=== PATIENT | male | born 1970 | race Caucasian/White ===

== ENCOUNTER 2018-09-02 08:48 | Emergency (ER) | END 2018-09-02 11:23 | disposition home or self-care (01) ==

== ENCOUNTER 2018-10-20 23:11 | Inpatient (IN) | payer OTHER ==
[~2018-10-20] VITALS: Ht 177.8 cm; Wt 126.0 kg
[~2018-10-20 23:11] MED LIST: AMLO-147 PO; ASPI-817 PO; ERGO2000 PO; FENO145T37 PO; FURO40TA4 PO; LISI-471 PO; METO-336 PO; PANT40TA4 PO
[2018-10-20] MEDS ORDERED: SOD CHLORIDE 0.9% 1,000 ML IV STA (23:24)
[2018-10-20] MEDS ORDERED: DILTIAZEM 25 MG INJ IV ONE (23:30)
[2018-10-21] MEDS ORDERED: DILTIAZEM-D5W 125MG/125ML DRIP 125 ML IV SCH (00:30)
[2018-10-21] MEDS ORDERED: ONDANSETRON 4 MG INJ IV STA (00:37)
[2018-10-21] MEDS ORDERED: morphine 4 MG/ML VIAL IV STA (00:37)
--- NOTE | 2018-10-21 01:34 | ERD ---
ER Documentation Chief Complaint Chief Complaint SQUEEZING CP WITH IRREGULR RHTHYM, HX OF CABG HPI This is a very pleasant 39-year-old male, no swelling chest pain irregular rhythm. Patient has history of coronary artery bypass graft. History of A. fib as well. Said he felt palpitations as well. No nausea no vomiting or chills. No other current complaints. Pain is mild to moderate in intensity with no exacerbating alleviating factors ROS All systems reviewed and are negative except as per history of present illness. Medications Home Meds Reported Medications Lisinopril* (Lisinopril*) 20 Mg Tablet, 20 MG PO DAILY, #30 TAB 09/02/18 Pantoprazole* (Pantoprazole*) 40 Mg Tablet.dr, 40 MG PO AC BREAKFAST, TAB 09/02/18 Aspirin* (Aspirin* EC) 81 Mg Tablet.dr, 81 MG PO DAILY, TAB 09/02/18 Fenofibrate Nanocrystallized* (Fenofibrate*) 145 Mg Tablet, 145 MG PO DAILY, TAB 09/02/18 Metoprolol Succinate* (Toprol XL*) 100 Mg Tab.sr.24h, 100 MG PO DAILY, #30 TAB 09/02/18 Amlodipine Besylate* (Amlodipine Besylate*) 10 Mg Tablet, 10 MG PO DAILY, #30 TAB 18 Furosemide* (Furosemide*) 40 Mg Tablet, 40 MG PO DAILY, TAB 09/02/18 Ergocalciferol (Vitamin D2) (VITAMIN D2) 2,000 Unit Tablet, 2000 UNIT PO DAILY, TAB 09/02/18 Allergies Allergies: Coded Allergies: No Known Allergy (Unverified , 09/02/18) PMhx/Soc History of Surgery: Yes (PERCUTANEOUS INTERVENTIONS, MULTIPLE) Anesthesia Reaction: No Hx Neurological Disorder: No Hx Respiratory Disorders: No Hx Cardiac Disorders: Yes (HTN, HI CHOL, CAD) Hx Psychiatric Problems: No Hx Miscellaneous Medical Probl: Yes (ANGINA, CAD, HTN, DYSLIPIDEMIA, DM) Hx Alcohol Use: No Hx Substance Use: Yes (OCCASIONAL) Hx Tobacco Use: Yes Smoking Status: Former smoker Physical Exam Vitals Vital Signs Date Temp Pulse Resp B/P (MAP) Pulse Ox O2 O2 Flow FiO2 Time Delivery Rate 10/21/18 126 15 126/70 97 Room Air 01:16 (88) 10/20/18 98.4 92 20 148/95 98 23:14 (112) Physical Exam Const: No acute distress Head: Atraumatic Eyes: Normal Conjunctiva ENT: Normal External Ears, Nose and Mouth. Neck: Full range of motion. No meningismus. Resp: Clear to auscultation bilaterally Cardio: Regular rate and rhythm, no murmurs Abd: Soft, non tender, non distended. Normal bowel sounds Skin: No petechiae or rashes Back: No midline or flank tenderness Ext: No cyanosis, or edema Neur: Awake and alert Psych: Normal Mood and Affect Result Diagram: 10/20/18233410/20/182334 Results 24 hrs Laboratory Tests Test 10/20/18 23:35 White Blood Count 7.4 10^3/ul Red Blood Count 5.24 10^6/ul Hemoglobin 15.9 g/dl Hematocrit 43.1 % Mean Corpuscular Volume 82.3 fl Mean Corpuscular Hemoglobin 30.3 pg Mean Corpuscular Hemoglobin Concent 36.9 g/dl Red Cell Distribution Width 13.2 % Platelet Count 209 10^3/UL Mean Platelet Volume 9.7 fl Immature Granulocytes % 0.700 % Neutrophils % 49.5 % Lymphocytes % 41.1 % Monocytes % 7.0 % Eosinophils % 1.2 % Basophils % 0.5 % Nucleated Red Blood Cells % 0.0 /100WBC Immature Granulocytes # 0.050 10^3/ul Neutrophils # 3.7 10^3/ul Lymphocytes # 3.0 10^3/ul Monocytes # 0.5 10^3/ul Eosinophils # 0.1 10^3/ul Basophils # 0.0 10^3/ul Nucleated Red Blood Cells # 0.0 10^3/ul Prothrombin Time 12.6 Sec Prothrombin Time Ratio 1.0 INR International Normalized Ratio 0.93 Activated Partial Thromboplast Time 28.3 Sec Sodium Level 135 mmol/L Potassium Level 3.7 mmol/L Chloride Level 95 mmol/L Carbon Dioxide Level 29 mmol/L Anion Gap 11 Blood Urea Nitrogen 15 mg/dl Creatinine 0.89 mg/dl Est Glomerular Filtrat Rate mL/min > 60 mL/min Glucose Level 229 mg/dl Calcium Level 9.8 mg/dl Total Bilirubin 0.5 mg/dl Direct Bilirubin 0.00 mg/dl Indirect Bilirubin 0.5 mg/dl Aspartate Amino Transf (AST/SGOT) 27 IU/L Alanine Aminotransferase (ALT/SGPT) 28 IU/L Alkaline Phosphatase 110 IU/L Troponin I < 0.012 ng/ml B-Type Natriuretic Peptide 42 PG/ML Total Protein 8.4 g/dl Albumin 4.7 g/dl Globulin 3.70 g/dl Albumin/Globulin Ratio 1.27 Lipase 127 U/L Current Medications Medications Dose Sig/Alex Start Time Status Last (Trade) Ordered Route PRN Stop Time Admin Dose Reason Admin Sodium 1,000 ml @ Q1H STAT 10/20/18 DC 10/20/18 Chloride 1,000 mls/hr IV 23:24 23:47 10/21/18 00:23 Diltiazem 20 mg ONCE ONCE 10/20/18 DC 10/20/18 HCl IV 23:30 23:47 (Cardizem Iv) 10/20/18 23:32 Diltiazem 125 ml @ 5 TITRATE IV 10/21/18 10/21/18 HCl mls/hr 00:30 01:07 Morphine 4 mg ONCE STAT 10/21/18 DC 10/21/18 Sulfate IV 00:37 01:00 (morphine) 10/21/18 00:38 Ondansetron 4 mg ONCE STAT 10/21/18 DC 10/21/18 HCl (Zofran IV 00:37 01:00 Inj) 10/21/18 00:38 Procedures/MDM Chest X-ray 1V Interpreted by me: Soft Tissue: No acute abnormalities Bones: No acute abnormalities Mediastinum/Cardiac Silhouette/Lungs: [No acute abnormalities] EKG: Rate/Rhythm: Irregularly irregular rhythm 140beats per minute QRS, ST, T-waves: [No changes consistent w/ acute ischemia] Impression: A. fib with RVR Medical decision making: Patient's symptoms are concerning for cardiac cause will require inpatient workup and continuous monitoring. Further w/u for ischemia, arrhythmia, PE or dissection will be deferred to the inpatient team. Patient started on Cardizem drip to maintain heart rate control Accepting Care Team: Current data and ongoing care discussed. Time: 1 AM Primary Provider: Dr. Parmar Consulting: Deferred to inpatient team Outstanding Data: none Critical Care: Time: 35 minutes, independent of any separately billable procedural time Treatments/Evaluations: Close monitoring and treatment of unstable vital signs, cardiorespiratory, and neurologic status, while maintaining tight balance of fluid, respiratory, and cardiac interventions. Departure Diagnosis: Primary Impression: Chest pain Chest pain type: unspecified Qualified Codes: R07.9 - Chest pain, unspecified Condition: Serious STORM MITCHELL Oct 21, 2018 01:34
[2018-10-21 02:46] VITALS: PULSE 112
[2018-10-21 02:57] VITALS: BP 140/83; PULSE 121; RESP 20
[2018-10-21 03:11] VITALS: Ht 177.8 cm; Wt 126.0 kg
--- NOTE | 2018-10-21 03:59 | NUR ---
Pt. was admitted from the ER at 0245 for palpitations, a little chest pain. Dx Afib w/RVR. Troponin was negative at<0.012. Cardizem drip was started at the ER. Pt. received at 15 mg/hr Cardizem drip, S.Tach, HR = 121, no pain, steady on his feet, rest of the V/S normal.
[2018-10-21 04:00] VITALS: PULSE 79
[2018-10-21 04:55] VITALS: BP 142/80; PULSE 120; RESP 20
[2018-10-21] MEDS ORDERED: METOPROLOL (XL) 100 MG TAB PO SCH (05:08)
[2018-10-21] MEDS ORDERED: GLUCOSE GEL 15 GRAM TUBE PO PRN ×2 (05:30)
[2018-10-21] MEDS ORDERED: ACETAMINOPHEN 325 MG TAB PO PRN (05:30)
[2018-10-21] MEDS ORDERED: GLUCOSE GEL 15 GRAM TUBE BUCCAL PRN (05:30)
[2018-10-21] MEDS ORDERED: morphine 4 MG/ML VIAL IV PRN (05:30)
[2018-10-21] MEDS ORDERED: DEXTROSE 50% 50 ML SYRINGE IV PRN ×2 (05:30)
[2018-10-21] MEDS ORDERED: GLUCAGON 1 MG INJ IM PRN (05:30)
[2018-10-21] MEDS ORDERED: PANTOPRAZOLE (EC) 40 MG TAB PO SCH (07:00)
--- NOTE | 2018-10-21 07:13 | NUR ---
Pt. was in Sinus tach when received from the ICU, 121 rate, at 15 mg/hr Cardizem drip, then HR went SR 81, reduced drip to 10 mg/hr,then 5 mg/hr. Pt.s v/s were stable, pt. was comfortable,Metoprolol XL po was started. Endorsed to day RN weaning off of Cardizem drip.
[2018-10-21 07:38] VITALS: BP 132/76; PULSE 74; RESP 20
[2018-10-21] MEDS ORDERED: INSULIN ASPART [NOVOLOG] 3 ML PEN SC SCH (08:00)
[2018-10-21 08:52] VITALS: PULSE 79
[2018-10-21] MEDS ORDERED: FUROSEMIDE 20 MG INJ IV SCH (09:00)
[2018-10-21] MEDS ORDERED: CHOLECALCIFEROL 2,000 UNIT CAP PO SCH (09:00)
[2018-10-21] MEDS ORDERED: FENOFIBRATE 145 MG TAB PO SCH (09:00)
[2018-10-21] MEDS ORDERED: ASPIRIN (EC) 81 MG TAB PO SCH (09:00)
[2018-10-21] MEDS ORDERED: AMLODIPINE 10 MG TAB PO SCH (09:00)
[2018-10-21] MEDS ORDERED: LISINOPRIL 20 MG TAB PO SCH (09:00)
[2018-10-21] MEDS ORDERED: APIX5TAB PO (10:01)
[2018-10-21] MEDS ORDERED: METO-336 PO (10:01)
--- NOTE | 2018-10-21 10:02 | PDOCDIS ---
Discharge Instructions CONDITION [id number] Patient Condition: [id number] Good HOME CARE INSTRUCTIONS: [id number] Diet Instructions: [id number] Activity Restrictions: Aedow4m No Restrictions FOLLOW UP/APPOINTMENTS Follow-up Plan pcp [address] Morrissey 1 week THONG LANIER MD Oct 21, 2018 10:02
--- NOTE | 2018-10-21 11:13 | NUR ---
Discharge patient to home, self care. Patient remain stable. SR on the monitor. VS within normal limits. Administered scheduled meds. No complaints of pain. Discussed discharge instructions, home medications, diet, safety and follow up with primary care provider. DC on tele monitor and DC IV. Patient accompanied by significant others.
--- NOTE | 2018-10-21 12:18 | HP ---
DATE OF ADMISSION: 10/21/2018 CHIEF COMPLAINT: Palpitations. HISTORY OF PRESENT ILLNESS: A 47-year-old male with a history of coronary artery disease, hypertensi on, type 2 diabetes mellitus, hyperlipidemia and atrial fibrillation, status post coronary artery byp ass graft about 6 years prior to admission, presented to the emergency room with a complaint of on an d off palpitations. The patient denies any shortness of breath. No nausea, vomiting or diaphoresis. No exertional symptoms. Palpitations were noted approximately 45 minutes prior to visit to the [facility]. The patient was diagnosed with rapid atrial fibrillation and started on IV Cardizem. F ollowing admission, he converted to a normal sinus rhythm. Initial troponin was less than 0.012 and repeat troponin was 0.028. At the time of my visit, the patient was completely asymptomatic. PAST MEDICAL HISTORY: 1. Coronary artery disease. 2. Hypertension. 3. Paroxysmal atrial fibrillation. 4. Type 2 diabetes mellitus. 5. Hyperlipidemia. PAST SURGICAL HISTORY: Status post coronary artery bypass graft about 6 years prior to admission. MEDICATIONS PRIOR TO ADMISSION: 1. Norvasc 10 mg daily. 2. Aspirin 81 mg daily. 3. Fenofibrate 145 mg daily. 4. Lisinopril 20 mg daily. 5. Lasix 20 mg daily. 6. NovoLog insulin. 7. Protonix 40 mg daily. 8. Toprol-XL 100 mg daily. SOCIAL HISTORY: The patient lives at home. He denies tobacco or alcohol use. PHYSICAL EXAMINATION: GENERAL: Well-developed, well-nourished, pleasant gentleman who is in no apparent distress. VITAL SIGNS: Stable. Heart rate is 79. HEENT: Extraocular muscles are intact. Pupils are equal, reactive to light bilaterally. Sclerae ar e anicteric. Oropharynx is clear and moist. NECK: Supple. No JVD, no carotid bruits. LUNGS: Clear to auscultation bilaterally. CARDIAC: Regular rate and rhythm. No murmurs, rubs or gallops. ABDOMEN: Soft, nontender, nondistended. Normoactive bowel sounds. EXTREMITIES: No clubbing, cyanosis or edema. NEUROLOGICAL: Grossly nonfocal. ASSESSMENT: 1. A 47-year-old male with rapid atrial fibrillation, converted to normal sinus rhythm. 2. Paroxysmal atrial fibrillation. 3. Coronary artery disease. 4. Status post CABG about 6 years prior to admission. 5. Hypertension. 6. Type 2 diabetes mellitus. 7. Hyperlipidemia. PLAN: Placed in a tele observation. Resume home medications. Start Eliquis 5 mg b.i.d. Case was d iscussed with Dr. Palm. He agreed with the discharge planning on increasing doses of Toprol-XL and starting Eliquis. Dictated By: THONG GONZALEZ/NTS Conf#: [id number] DID#: [id number] CC: KEL PALM MD; RADHA COTTON MD;*EndCC*
--- NOTE | 2018-10-21 16:40 | RADRPT ---
Echocardiogram Report Patient Name: JAK LONGORIA Gender: Male Date: 1970 Study Date: 21-Oct-2018 Instructional Assistant: Ethan Mcginnis [facility] Location: [address] Ref. Physician: RADHA COTTON Quality: Adequate Procedures: Transthoracic echocardiogram with complete 2D, M-Mode, and doppler examination. Indications: Atrial Fibrillation. Palpitations. 2D/M Mode Doppler Measurement Value Normal Ranges Measurement Value Normal Ranges LVIDd 2D 3.6 3.5 - 5.6 cm AV Peak Rudolph 1.9 m/sec LVIDs 2D 2.8 2.1 - 4.1 cm AV Peak PG 15.0 mmHg LVPWd 2D 1.7 0.6 - 1.1 cm LVOT Peak Rudolph 1.3 m/sec IVSd 2D 1.7 0.6 - 1.1 cm LVOT Peak PG 7.0 mmHg AoR Diam 2D 3.4 2.0 - 3.7 cm MV E Peak Rudolph 1.0 m/sec LA/Ao 2D 1 0 - 1 MV A Peak Rudolph 0.7 m/sec LA Dimen 2D 3.5 2.3 - 4.0 cm MV E/A 1.4 MV Decel Time 229 msec Lat E` Rudolph 0.1 m/sec Lateral E/E` 9.3 MV E/A 1.4 Findings Left Ventricle: Normal left ventricular systolic function. Normal left ventricular cavity size. Severe concentric left ventricular hypertrophy. Ejection fraction is visually estimated at 60 %. Tissue Doppler/Mitral Doppler indices are consistent with impaired relaxation (Stage I diastolic dysfunction). Right Ventricle: Normal right ventricular size. Normal right ventricular systolic function. Left Atrium: The left atrium is normal in size. Right Atrium: The right atrium is normal in size. Mitral Valve: Normal appearance and function of the mitral valve with trace physiologic regurgitation. Aortic Valve: Normal appearance of the aortic valve. No significant aortic stenosis or insufficiency. Tricuspid Valve: Normal appearance of the tricuspid valve. Unable to obtain RVSP due to minimal presence of tricuspid regurgitation. Pulmonic Valve: Pulmonic valve not well visualized. Pericardium: Normal pericardium with no significant pericardial effusion. Aorta: Normal aortic root. IVC: Normal size and normal respiratory collapse consistent with normal right atrial pressure. Conclusions Severe concentric left ventricular hypertrophy with normal systolic function. Grade 1 diastolic dysfunction. No significant valvular abnormalities seen. Electronically Signed By: Lakesha Whitaker 21-Oct-2018 16:40:21 -0800 Patient Name: JAK LONGORIA Study Date: 21-Oct-[id number]
--- NOTE | 2018-10-21 16:54 | DS ---
DATE OF ADMISSION: 10/21/2018 DATE OF DISCHARGE: 10/21/2018 DISCHARGE DIAGNOSES: 1. Rapid atrial fibrillation, converted to normal sinus rhythm. 2. Paroxysmal atrial fibrillation. 3. Coronary artery disease status post coronary artery bypass graft 6 years prior to admission. 4. Hypertension. 5. Type 2 diabetes. 6. Hyperlipidemia, HOSPITAL COURSE: A 47-year-old pleasant male with known history of paroxysmal atrial fibrillation an d coronary artery disease, status post CABG 6 years prior to admission, presented to emergency room w ith complaint of palpitations that started about 45 minutes prior to visit to the emergency room. Th e patient was diagnosed with rapid atrial fibrillation. He was started on IV Cardizem and home medic ations are resumed. He converted to normal sinus rhythm following admission. At the time of my visi t, the patient was completely asymptomatic. He denied any exertional chest pain, nausea, vomiting or diaphoresis. Case was discussed with Dr. Palm. I recommended starting Eliquis and increasing Top rol-XL to 100 mg b.i.d. He agreed with the plan. The patient is in stable condition for discharge. He will follow up with PCP and Dr. Palm in 1 week. DISCHARGE DISPOSITION: Discharge home. DISCHARGE MEDICATIONS: 1. Toprol-XL 100 mg p.o. b.i.d. 2. Eliquis 5 mg p.o. b.i.d. 3. Amlodipine 10 mg daily. 4. Aspirin 81 mg daily. 5. Fenofibrate 145 mg daily. 6. Lisinopril 20 mg daily. 7. Lasix 20 mg daily. 8. Protonix 40 mg daily. 9. Resume previous insulin therapy. FOLLOWUP: 1. Follow up with PCP in 1 week. 2. Follow up with Dr. Palm in 1 week. Dictated By: THONG GONZALEZ/NTS Conf#: [id number] DID#: [id number] CC: RADHA COTTON MD; KEL PALM MD;*End*
[2018-10-22] MEDS ORDERED: ACCU-CHEK XX SCH (02:00)
== END 2018-10-21 11:20 | disposition home or self-care (01) | DRG 310 ==
LOC: E/R 23:11 → 6WM 10-21 01:11
PROVIDERS: ADMIT Internal Medicine; ATTEND Internal Medicine
DX: I48.0 Paroxysmal atrial fibrillation (principal); I10 Essential (primary) hypertension; E78.00 Pure hypercholesterolemia, unspecified; I25.10 Atherosclerotic heart disease of native coronary artery without angina pectoris; Z95.1 Presence of aortocoronary bypass graft; E11.9 Type 2 diabetes mellitus without complications; E78.5 Hyperlipidemia, unspecified; Z79.82 Long term (current) use of aspirin; Z87.891 Personal history of nicotine dependence
CPT/HCPCS: 36415; 71045; 80053; 80061; 82550; 82553; 82962; 83036; 83690; 83880; 84484; 85025; 85610; 85730; 93005; 93306; 96374; 96375; J1815; J1940; J2270; J2405; J7030